=== PATIENT | female | born 1970 | race Two or more races ===

== ENCOUNTER 2017-05-27 09:58 | Emergency (ER) | payer SELFPAY ==
--- NOTE | ~2017-05-27 | US85 ---
[facility] A Service of [facility] & [facility] RADIOLOGY TEXT RESULTS PATIENT: MARSHAL JUAREZ LOCATION: CFTX : 70 UNIT #: [id number] AGE: [address]: Lesly Jung SEX: F ORDER DR: [id number] [facility] [address] [place], [place] [address] [id number] E MR#: [id number] Acc #: [id number] NAME: MARSHAL JUAREZ : 1970 SEX: F STUDY DATE/TIME: 05/27/2017 11:32 UNIT: [facility] ROOM: STUDY DESCRIPTION: [facility] [place] [employer] Attending Physician: Lesly Jung Pa-C Ordering Physician: Lesly Jung Pa-C Primary Care Physician: Primary Care Physician No MEDICAL IMAGING REPORT This report is preliminary unless electronic signature is present EXAM Left lower extremity venous duplex ultrasound, 05/27/2017 HISTORY 47-year-old female with left leg pain for 1 week. COMPARISON None FINDINGS Real-time nash-scale, color Doppler, and spectral Doppler analysis of the left lower extremity deep venous system demonstrates normal venous waveforms with normal compressibility and augmentation throughout. No evidence of left lower extremity deep venous thrombosis. IMPRESSION Negative for left lower extremity DVT. Dictated by... Ben Desai M.D. THIS IS AN ELECTRONICALLY VERIFIED REPORT Ben Desai M.D. at 05/27/2017 4:50 PM Monica TD: 05/27/2017 15:55 JOB #: [id number] MEDICAL IMAGING REPORT Page 1 of 1 COPY
== END 2017-05-27 12:13 | disposition home or self-care (01) ==
LOC: CED 09:58 → CFTX 09:58
DX: S39.012A Strain of muscle, fascia and tendon of lower back, initial encounter (principal); I10 Essential (primary) hypertension; X58.XXXA Exposure to other specified factors, initial encounter
CPT/HCPCS: 93971; 99283